=== PATIENT | male | born 1990 | race Caucasian/White ===

== ENCOUNTER → 2017-12-22 | Outpatient (REF) | payer SELFPAY | LOC: M LAB REF 16:29 | DX: J02.9 Acute pharyngitis, unspecified (principal) | CPT/HCPCS: 87070 ==

== ENCOUNTER 2020-07-19 19:30 | Emergency (ER) | payer BC, SELFPAY ==
[~2020-07-19] VITALS: Ht 175.3 cm; Wt 75.0 kg
[2020-07-19 21:11] VITALS: BP 121/80
--- NOTE | 2020-07-19 21:33 | REPVR ---
PROCEDURE INFORMATION: Exam: XR Right Foot Complete Exam date and time: 07/19/2020 7:39 PM Age: 30 years old Clinical indication: Other: Injury TECHNIQUE: Imaging protocol: XR Right foot. Views: 3 or more views. COMPARISON: No relevant prior studies available. FINDINGS: Bones/joints: Slight flattening of the 2nd metatarsal head with slight subchondral lucency. Minimal degenerative spurring dorsally at the 1st metatarsophalangeal joint. No acute fracture. No dislocation. Soft tissues: Normal. IMPRESSION: 1. 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 2. Early dorsal degenerative spurring at the 1st metatarsophalangeal joint. 3. Otherwise negative right foot. No acute fracture. Electronically signed by: Demond Holt On 07/19/2020 21:32:53 PM
--- NOTE | 2020-07-21 15:44 | ED PDOC ---
Post-Departure Follow-Up radiology report faxed to Tiffany Guzman MD Jul 21, 2020 15:44
== END 2020-07-19 21:16 | disposition home or self-care (01) ==
LOC: M ED 19:30
DX: S93.601A Unspecified sprain of right foot, initial encounter (principal); W22.03XA Walked into furniture, initial encounter; Y92.89 Other specified places as the place of occurrence of the external cause; Y93.02 Activity, running; Y99.0 Civilian activity done for income or pay; R93.7 Abnormal findings on diagnostic imaging of other parts of musculoskeletal system; F17.200 Nicotine dependence, unspecified, uncomplicated; M25.774 Osteophyte, right foot

== ENCOUNTER 2020-07-22 17:51 | Emergency (ER) | payer BC ==
[~2020-07-22] VITALS: Ht 175.3 cm; Wt 71.7 kg
[2020-07-22] MEDS ORDERED: LIDOCAINE 4% CREAM 5GM (LMX4) TOP ONE (18:30)
--- NOTE | 2020-07-22 19:10 | REPVR ---
PROCEDURE INFORMATION: Exam: CT Right Lower Extremity Without Contrast, Ankle Exam date and time: 07/22/2020 6:45 PM Age: 30 years old Clinical indication: Injury or trauma; Fall; Sprain or strain; Ankle; Right; Additional info: Injury 3 days ago, no improvement, XR neg TECHNIQUE: Imaging protocol: CT of the Right lower extremity without contrast was performed. Exam focused on the ankle. Radiation optimization: All CT scans at this facility use at least one of these dose optimization techniques: automated exposure control; mA and/or kV adjustment per patient size (includes targeted exams where dose is matched to clinical indication); or iterative reconstruction. COMPARISON: CR Foot, complete RIGHT 07/19/2020 8:55 PM FINDINGS: Bones/joints: There is no fracture or dislocation of the right ankle. Incidental note is made of 2 well corticated ossicles posterior to the posterior process of the talus, which represent os trigoni. The joint spaces are preserved. No arthropathy is noted. The ankle mortise is symmetric. No tibiotalar joint effusion is seen. Soft tissues: Unremarkable. No soft tissue fluid collection. IMPRESSION: No fracture or dislocation of the right ankle. Electronically signed by: Mckinley Vaz On 07/22/2020 19:09:35 PM
--- NOTE | 2020-07-22 19:10 | REPVR ---
PROCEDURE INFORMATION: Exam: CT Right Lower Extremity Without Contrast, Foot Exam date and time: 07/22/2020 6:45 PM Age: 30 years old Clinical indication: Injury or trauma; Fall; Sprain or strain; Foot; Right; Additional info: Injury 3 days ago, no improvement, difficulty weight-bearing TECHNIQUE: Imaging protocol: CT of the Right lower extremity without contrast was performed. Exam focused on the foot. Radiation optimization: All CT scans at this facility use at least one of these dose optimization techniques: automated exposure control; mA and/or kV adjustment per patient size (includes targeted exams where dose is matched to clinical indication); or iterative reconstruction. COMPARISON: CR Foot, complete RIGHT 07/19/2020 8:55 PM FINDINGS: Bones/joints: There is no acute fracture or dislocation of the right foot. There is mild subchondral collapse and sclerosis of the head of the right 2nd metatarsal, which is compatible with a Freiberg infraction. No radiolucent subchondral fracture line or osteochondral loose body is noted. No secondary osteoarthritis of the right 2nd metatarsophalangeal joint is noted. There is no tarsal coalition. There is no CT evidence for a bone tumor. The joint spaces are preserved. Incidental note is made of 2 well corticated ossicles posterior to the posterior process of the talus, which represent os trigoni. Soft tissues: There is thickening of the subcutaneous tissues plantar to the head of the right 5th metatarsal, which is compatible with a pressure lesion that is a fibrofatty lesion that occurs at a pressure point adjacent to a bony prominence. No soft tissue fluid collection is noted. IMPRESSION: 1. No acute fracture or dislocation of the right foot. 2. 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 3. Pressure lesion in the subcutaneous tissues plantar to the head of the right 5th metatarsal. Electronically signed by: Mckinley Vaz On 07/22/2020 19:09:31 PM
[2020-07-22] MEDS ORDERED: ANEC4CRE3 TOP (19:35)
[2020-07-22 19:40] VITALS: BP 123/67
--- NOTE | 2020-07-23 14:52 | ED PDOC ---
Post-Departure Follow-Up dr velasquez faxed formal report of ct foot for fu Eugenio Mattson MD Jul 23, 2020 14:52
== END 2020-07-22 19:52 | disposition home or self-care (01) ==
LOC: M ED 17:51
DX: S99.921A Unspecified injury of right foot, initial encounter (principal); M79.671 Pain in right foot; W22.03XA Walked into furniture, initial encounter; Y93.89 Activity, other specified; Y99.9 Unspecified external cause status; Y99.0 Civilian activity done for income or pay

== ENCOUNTER → 2020-10-28 | Outpatient (REF) | payer BC ==
[~2020-10-28] MED LIST: ANEC4CRE3 TOP
[2020-10-28 18:44] LABS: APPEARANCE, URINE CLEAR (CLEAR); BACTERIA, URINE AUTO NEGATIVE (NEGATIVE); BILIRUBIN, URINE AUTO NEGATIVE (NEGATIVE); BLOOD, URINE BLOOD NEGATIVE (NEGATIVE); COLOR, URINE YELLOW (YELLOW); GLUCOSE, URINE (UA) AUTO NEGATIVE (NEGATIVE); KETONE, URINE AUTO NEGATIVE (NEGATIVE); LEUKOCYTE ESTERASE, URINE AUTO NEGATIVE (NEGATIVE); MUCUS, URINE SMALL (NEGATIVE); NITRITE, URINE AUTO NEGATIVE (NEGATIVE); PROTEIN, URINE AUTO NEGATIVE (NEGATIVE); RBC, URINE AUTO 0 /HPF (0-3); SPECIFIC GRAVITY URINE AUTO 1.029 (1.002-1.035); SQUAMOUS EPITHELIAL CELL UR AU 0 /HPF (0-6); WBC, URINE AUTO 1 /HPF (0-3)
[2020-10-28 18:49] LABS: ALBUMIN 4.3 GM/DL (3.2-5.2); ALT/SGPT 47 U/L (12-78); BILIRUBIN,TOTAL 1.7 MG/DL (0.2-1.0); BLOOD UREA NITROGEN 15 MG/DL (7-18); CALCIUM LEVEL 9.6 MG/DL (8.5-10.1); CARBON DIOXIDE LEVEL 32 MEQ/L (21-32); CHLORIDE LEVEL 104 MEQ/L (98-107); CREATININE FOR GFR 1.03 MG/DL (0.70-1.30); GLOMERULAR FILTRATION RATE > 60.0 (>60); GLUCOSE, FASTING 78 MG/DL (70-100); POTASSIUM SERUM 4.1 MEQ/L (3.5-5.1); SODIUM LEVEL 140 MEQ/L (136-145); TOTAL PROTEIN 7.9 GM/DL (6.4-8.2)
[2020-10-28 18:57] LABS: HEPATITIS B SURFACE ANTIBODY NEGATIVE (POSITIVE)
[2020-10-28 19:07] LABS: HEPATITIS B SURFACE ANTIGEN NEGATIVE (NEGATIVE)
[2020-10-28 19:36] LABS: HEPATITIS C VIRUS ABY INDEX < 0.0 INDEX (<0.8)
[2020-10-28 20:19] LABS: CHLAMYDIA DNA AMPLIFICATION NEGATIVE (NEGATIVE); GC DNA AMPLIFICATION NEGATIVE (NEGATIVE)
[2020-11-01 03:07] LABS: % CD8 Pos Lymph 73.3 % (12.0-35.5); %CD4 Pos Lymphs 13.6 % (30.8-58.5); ABS Eosinophils 0.1 x10E3/uL (0.0-0.4); ABS Lymphs 1.8 x10E3/uL (0.7-3.1); ABS Monocytes 0.5 x10E3/uL (0.1-0.9); ABS Neutophils 1.5 x10E3/uL (1.4-7.0); Abs CD4 Helper 245 /uL (359-1519); Abs CD8 Suppres 1319 /uL (109-897); CD4/CD8 Ratio 0.19 (0.92-3.72); Eosinophils 2 % (Not Estab.); HCT 45.8 % (37.5-51.0); HEPATITIS B CORE ANTIBODY IGG Negative (Negative); HGB 15.7 g/dL (13.0-17.7); HIV-1 RNA PCR QUANT 2 LC550285 46540 copies/mL (.); HIV-1 RNA PCR QUANT 3 LC550285 4.668 (.); Immature Grans 0 % (Not Estab.); Lymphocytes 47 % (Not Estab.); MCH 30.9 pg (26.6-33.0); MCHC 34.3 g/dL (31.5-35.7); MCV 90 fL (79-97); Monocytes 12 % (Not Estab.); Neutrophils 39 % (Not Estab.); Platelets 163 x10E3/uL (150-450); RBC 5.08 x10E6/uL (4.14-5.80); RDW 13.8 % (11.6-15.4); WBC 3.9 x10E3/uL (3.4-10.8)
[2020-11-06 14:45] LABS: HIV GenoSure PRIme(R) SEE SEPARATE REPORT
== END ==
LOC: M SFHCPLAZ 14:27
PROVIDERS: ATTEND Internal Medicine Infectious Disease
DX: B20 Human immunodeficiency virus [HIV] disease (principal); Z11.3 Encounter for screening for infections with a predominantly sexual mode of transmission

== ENCOUNTER → 2021-08-29 | Outpatient (REF) | payer BC | LOC: EEVIPCON 19:36 → M WUC 19:36 | PROVIDERS: ATTEND Physician Assistant | DX: L02.413 Cutaneous abscess of right upper limb (principal) ==

== ENCOUNTER → 2021-10-16 | Outpatient (REF) | payer BC | LOC: M LAB REF 16:40 | PROVIDERS: ATTEND Physician Assistant | DX: R07.0 Pain in throat (principal) ==

== ENCOUNTER → 2022-01-12 | Outpatient (CLI) | payer BC ==
[2022-01-12 14:26] LABS: ALBUMIN 3.9 GM/DL (3.2-5.2); ALT/SGPT 21 U/L (12-78); BILIRUBIN,TOTAL 1.2 MG/DL (0.2-1.0); BLOOD UREA NITROGEN 17 MG/DL (7-18); CARBON DIOXIDE LEVEL 30 MEQ/L (21-32); CHLORIDE LEVEL 110 MEQ/L (98-107); CHOLESTEROL LEVEL 177 MG/DL (<200); CHOLESTEROL RISK RATIO 3.403 (<5); CREATININE FOR GFR 1.03 MG/DL (0.70-1.30); GLOMERULAR FILTRATION RATE > 60.0 (>60); GLUCOSE, FASTING 94 MG/DL (70-100); HDL CHOLESTEROL 52 MG/DL (>40); LDL CHOLESTEROL 113 MG/DL (<100); NON-HDL-C 125 MG/DL; SODIUM LEVEL 141 MEQ/L (136-145); TOTAL PROTEIN 6.9 GM/DL (6.4-8.2); TRIGLYCERIDES LEVEL 58 MG/DL (<150)
[2022-01-12 14:35] LABS: HEPATITIS B SURFACE ANTIBODY NEGATIVE (POSITIVE)
[2022-01-14 06:08] LABS: % CD8 Pos Lymph 44.2 % (12.0-35.5); %CD4 Pos Lymphs 30.1 % (30.8-58.5); ABS Eosinophils 0.1 x10E3/uL (0.0-0.4); ABS Lymphs 1.2 x10E3/uL (0.7-3.1); ABS Monocytes 0.5 x10E3/uL (0.1-0.9); ABS Neutophils 2.3 x10E3/uL (1.4-7.0); Abs CD4 Helper 361 /uL (359-1519); Abs CD8 Suppres 530 /uL (109-897); CD4/CD8 Ratio 0.68 (0.92-3.72); Eosinophils 3 % (Not Estab.); HCT 41.7 % (37.5-51.0); HEPATITIS A IgG TOTAL Positive (Negative); HGB 14.4 g/dL (13.0-17.7); HIV-1 RNA PCR QUANT 2 LC550285 40 copies/mL (.); HIV-1 RNA PCR QUANT 3 LC550285 1.602 (.); Immature Grans 0 % (Not Estab.); Lymphocytes 28 % (Not Estab.); MCH 32.2 pg (26.6-33.0); MCHC 34.5 g/dL (31.5-35.7); MCV 93 fL (79-97); Monocytes 12 % (Not Estab.); Neutrophils 56 % (Not Estab.); Platelets 183 x10E3/uL (150-450); RBC 4.47 x10E6/uL (4.14-5.80); WBC 4.2 x10E3/uL (3.4-10.8)
== END ==
LOC: M PLALAB 09:56
PROVIDERS: ATTEND Internal Medicine Infectious Disease
DX: Z11.3 Encounter for screening for infections with a predominantly sexual mode of transmission (principal); B20 Human immunodeficiency virus [HIV] disease

== ENCOUNTER → 2022-12-29 | Outpatient (CLI) | payer OTHER ==
[2022-12-29 14:17] LABS: ALBUMIN 4.2 G/DL (3.2-5.2); ALKALINE PHOSPHATASE 65 U/L (46-116); ALT/SGPT 18 U/L (7.0-40); AST/SGOT 16 U/L (<34); BILIRUBIN,TOTAL 1.2 MG/DL (0.3-1.2); BLOOD UREA NITROGEN 15 MG/DL (9-23); CALCIUM LEVEL 9.3 MG/DL (8.5-10.1); CARBON DIOXIDE LEVEL 30 MMOL/L (20-31); CHLORIDE LEVEL 106 MMOL/L (98-107); CHOLESTEROL LEVEL 186 MG/DL (<200); CHOLESTEROL RISK RATIO 3.37 (<5); CREATININE FOR GFR 0.86 MG/DL (0.70-1.30); GLOMERULAR FILTRATION RATE > 60.0 (>60); GLUCOSE, FASTING 93 MG/DL (60-100); HDL CHOLESTEROL 55.1 MG/DL (>40); LDL CHOLESTEROL 117.5 MG/DL (<100); NON-HDL-C 130.9 MG/DL; POTASSIUM SERUM 3.8 MMOL/L (3.5-5.1); SODIUM LEVEL 142 MMOL/L (136-145); TRIGLYCERIDES LEVEL 67 MG/DL (<150)
[2022-12-29 14:19] LABS: THYROID STIMULATING HORMONE 1.303 uIU/ML (0.55-4.78)
[2022-12-29 15:55] LABS: HEMOGLOBIN A1c 5.2 % (4.0-6.0)
== END ==
LOC: M PLALAB 11:35
PROVIDERS: ATTEND Internal Medicine Infectious Disease
DX: B20 Human immunodeficiency virus [HIV] disease (principal); Z13.220 Encounter for screening for lipoid disorders; R63.4 Abnormal weight loss

== ENCOUNTER → 2024-03-07 | Outpatient (CLI) | payer OTHER | LOC: M PLALAB 13:16 | PROVIDERS: ATTEND Internal Medicine Infectious Disease | DX: B20 Human immunodeficiency virus [HIV] disease (principal); Z53.9 Procedure and treatment not carried out, unspecified reason ==

== ENCOUNTER → 2024-07-13 | Outpatient (CLI) | payer OTHER ==
[2024-07-13 14:25] LABS: ALBUMIN 3.9 G/DL (3.2-5.2); ALKALINE PHOSPHATASE 66 U/L (46-116); ALT/SGPT 19 U/L (7.0-40); AST/SGOT < 8 U/L (<34); BLOOD UREA NITROGEN 18 MG/DL (9-23); CALCIUM LEVEL 9.6 MG/DL (8.5-10.1); CARBON DIOXIDE LEVEL 29 MMOL/L (20-31); CHLORIDE LEVEL 108 MMOL/L (98-107); CREATININE FOR GFR 0.94 MG/DL (0.70-1.30); GLOMERULAR FILTRATION RATE > 60.0 (>60); GLUCOSE, FASTING 86 MG/DL (60-100); POTASSIUM SERUM 3.6 MMOL/L (3.5-5.1); SODIUM LEVEL 142 MMOL/L (136-145); TOTAL PROTEIN 6.7 G/DL (5.7-8.2)
[2024-07-14 13:07] LABS: ABSOLUTE CD4 HELPER 660 /uL (359-1519); BASOPHILS 0 % (Not Estab.); EOSINOPHILS 1 % (Not Estab.); EOSINOPHILS ABSOLUTE 0.1 x10E3/uL (0.0-0.4); HCT 45.1 % (37.5-51.0); HGB 14.8 g/dL (13.0-17.7); LYMPHOCYTES 29 % (Not Estab.); MCHC 32.8 g/dL (31.5-35.7); MCV 97 fL (79-97); MONOCYTES 13 % (Not Estab.); MONOCYTES ABSOLUTE 0.9 x10E3/uL (0.1-0.9); NEUTROPHILS 57 % (Not Estab.); NEUTROPHILS ABSOLUTE 3.9 x10E3/uL (1.4-7.0); PLT 226 x10E3/uL (150-450); RBC 4.63 x10E6/uL (4.14-5.80); RDW 13.7 % (11.6-15.4); WBC 6.9 x10E3/uL (3.4-10.8)
[2024-07-18 12:57] LABS: HIV-1 RNA PCR QUANT 2 NOT DETECTED copies/mL (NOT DETECTED); HIV-1 RNA PCR QUANT 3 NOT DETECTED (NOT DETECTED)
== END ==
LOC: M PLALAB 11:52
PROVIDERS: ATTEND Internal Medicine Infectious Disease
DX: B20 Human immunodeficiency virus [HIV] disease (principal); R50.9 Fever, unspecified

== ENCOUNTER → 2025-09-13 | Outpatient (REF) | payer OTHER ==
[2025-09-13 15:03] LABS: BASO # 0.0 10^3/uL (0.0-0.2); BASO % 0.2 % (0.0-1.0); EOS # 0.1 10^3/uL (0.0-0.5); EOS % 1.2 % (0.0-3.0); LYMPH # 1.6 10^3/uL (1.5-5.0); LYMPH % 37.3 % (24.0-44.0); MONO # 0.5 10^3/uL (0.0-0.8); MONO % 11.4 % (2.0-8.0); NEUTROPHILS # 2.1 10^3/uL (1.5-8.5); NEUTROPHILS % 49.7 % (36.0-66.0); PLATELET COUNT, AUTOMATED 197 10^3/uL (150-450)
[2025-09-13 15:24] LABS: ALT/SGPT 12 U/L (7.0-40); AST/SGOT 15 U/L (<34); CALCIUM LEVEL 9.4 MG/DL (8.5-10.1); CARBON DIOXIDE LEVEL 29 MMOL/L (20-31); CHLORIDE LEVEL 105 MMOL/L (98-107); CREATININE FOR GFR 0.93 MG/DL (0.70-1.30); GLOMERULAR FILTRATION RATE > 90.0 (>60); POTASSIUM SERUM 3.6 MMOL/L (3.5-5.1); SODIUM LEVEL 143 MMOL/L (136-145)
[2025-09-16 19:02] LABS: % CD4 31 % (30-61); %CD8 40 % (12-42); ABSOLUTE CD4 CELLS 514 cells/uL (490-1740); ABSOLUTE CD8 CELLS 663 cells/uL (180-1170); ABSOLUTE LYMPHOCYTES 1656 cells/uL (850-3900); CD4 CD8 RATIO 0.78 (0.86-5.00)
[2025-09-17 19:48] LABS: HIV-1 RNA PCR QUANT 2 NOT DETECTED copies/mL (NOT DETECTED); HIV-1 RNA PCR QUANT 3 NOT DETECTED (NOT DETECTED)
== END ==
LOC: M SFHCPLAZ 12:29
PROVIDERS: ATTEND Internal Medicine Infectious Disease
DX: B20 Human immunodeficiency virus [HIV] disease (principal)